=== PATIENT | female | born 1940 ===

== ENCOUNTER 2016-12-02 09:22 | Emergency (ER) | payer MEDICARE, MEDICAID ==
[2016-12-02 09:58] VITALS: O2SAT 98
--- NOTE | 2016-12-02 11:14 | C.PDOC ---
History Of Present Illness 76 year old female presents to the ED with complaints of itchiness to her scalp after dying her hair 2 weeks ago. Patient states she has had similar symptoms before which improved with Benadryl, however she has not taken anything this time. Denies difficulty breathing, fever, chills, or any other complaints. Time Seen by Provider: 12/02/16 11:08 Chief Complaint (Nursing): Abnormal Skin Integrity History Per: Patient History/Exam Limitations: no limitations Onset/Duration Of Symptoms: Days Current Symptoms Are (Timing): Still Present Quality Of Symptoms: Itching Severity: Mild Past Medical History Reviewed: Historical Data, Nursing Documentation, Vital Signs Vital Signs: Last Vital Signs Temp 97.9 F 12/02/16 11:31 Pulse 78 12/02/16 11:31 Resp 16 12/02/16 11:31 BP 156/74 H 12/02/16 11:31 Pulse Ox 98 12/02/16 11:31 - Medical History PMH: Diabetes, Diverticulitis, Gastritis, Gall Bladder Disease, Hiatal Hernia, Hypercholesterolemia Surgical History: Cholecystectomy - [facility] Procedures COLONOSCOPY (02/02/99) ESOPHAGOGASTRODUODENOSCOPY [EGD] W/CLOSED BIOPSY (08/15/98) Family History: States: Unknown Family Hx - Social History Hx Tobacco Use: No Hx Alcohol Use: No Hx Substance Use: No - Immunization History Hx Tetanus Toxoid Vaccination: Yes Hx Influenza Vaccination: Yes Hx Pneumococcal Vaccination: Yes Review Of Systems Except As Marked, All Systems Reviewed And Found Negative. Constitutional: Negative for: Fever, Chills ENT: Negative for: Mouth Swelling, Throat Swelling Cardiovascular: Negative for: Chest Pain Respiratory: Negative for: Shortness of Breath Gastrointestinal: Negative for: Vomiting Skin: Positive for: Other (+Itchiness to the scalp) Physical Exam - Physical Exam Appears: Non-toxic, No Acute Distress Skin: Warm, Dry, Other (+Mild erythema to the scalp and forehead by the hair line) Head: Atraumatic, Normacephalic Eye(s): bilateral: Normal Inspection Oral Mucosa: Moist Tongue: No Normal Appearing Lips: No Normal Appearing Throat: No Drooling Neck: Supple Chest: Symmetrical Cardiovascular: Rhythm Regular Respiratory: Normal Breath Sounds, No Accessory Muscle Use Extremity: Normal ROM Neurological/Psych: Oriented x3, Normal Speech, Normal Cognition ED Course And Treatment O2 Sat by Pulse Oximetry: 98 (Room air) Pulse Ox Interpretation: Normal Progress Note: Patient treated with Benadryl and Solu-Medrol. Medical Decision Making Medical Decision Making: mild pruritis of face and scalp educated to avoid irritants of scalp ie hair colorings. Disposition Doctor Will See Patient In The: Office Counseled Patient/Family Regarding: Studies Performed, Diagnosis - Disposition Referrals: Robbin Joy [Staff Provider] - Disposition: HOME/ ROUTINE Disposition Time: 11:14 Condition: GOOD Additional Instructions: devante las cosas para gambino rodrigo que pueden ser provocando gambino irritacion del piel y holli Ud Recebio' Solumedrol 125 mg Intramuscular en la [place] de Emergencias Sigue Benadryl 25-50 mg cada 6 horas cuate necessario Sigue con Dr. Joy cuate necessario. Prescriptions: DiphenhydrAMINE [Benadryl] 25 mg PO Q6H PRN #10 cap PRN Reason: rash/itch Instructions: Contact Dermatitis (ED) Print Language: HEBREW - Clinical Impression Clinical Impression: Contact dermatitis - Scribe Statement The provider has reviewed the documentation as recorded by the Scribe Mi Babcock. Provider Attestation: All medical record entries made by the Scribe were at my direction and personally dictated by me. I have reviewed the chart and agree that the record accurately reflects my personal performance of the history, physical exam, medical decision making, and the department course for this patient. I have also personally directed, reviewed, and agree with the discharge instructions and disposition.
[2016-12-02 11:32] VITALS: BP 156/74; PULSE 78; RESP 16; TEMP 97.9
== END 2016-12-02 11:37 | disposition home or self-care (01) ==
LOC: C.ER 09:22
DX: L25.9 Unspecified contact dermatitis, unspecified cause (principal)
CPT/HCPCS: 96372; 99284; J2930

== ENCOUNTER 2017-01-22 07:07 | Emergency (ER) | payer MEDICARE, MEDICAID ==
[2017-01-22 07:45] VITALS: BMI 30.1
[2017-01-22] MEDS ORDERED: Sodium Chloride 0.9% 1,000 ML IV ONE (07:45)
[2017-01-22] MEDS ORDERED: Sodium Chloride 0.9% 1,000 ML ONE (08:09)
[2017-01-22 08:19] LABS: BASO # 0.1 K/uL (0.0-0.2); BASO % 0.9 % (0.0-2.0); EOS # 0.2 K/uL (0.0-0.7); EOS % 2.2 % (0.0-4.0); HEMATOCRIT 38.2 % (34.0-47.0); LYMPH # 1.6 K/uL (1.0-4.3); LYMPH % 19.6 % (20.0-40.0); MEAN CELL VOLUME 88.4 fL (81.0-99.0); MEAN CORPUSCULAR HGB CONC 33.9 g/dL (33.0-37.0); MONO # 0.7 K/uL (0.0-0.8); MONO % 8.3 % (0.0-10.0); NRBC % 0.1 % (0.0-2.0); RED CELL DISTRIBUTION WIDTH 13.7 % (11.5-14.5); WHITE BLOOD COUNT 8.1 K/uL (4.8-10.8)
--- NOTE | 2017-01-22 08:22 | C.PDOC ---
History Of Present Illness 76 y/o female presents to the ED with complains of nausea, vomiting x3 days. Pt reports using proton pump inhibitor. Denies any pmhx. No abdominal pain, fever, chills, chest pain or any other complaints. Time Seen by Provider: 01/22/17 07:30 Chief Complaint (Nursing): Abdominal Pain History Per: Patient History/Exam Limitations: no limitations Onset/Duration Of Symptoms: Hrs Current Symptoms Are (Timing): Still Present Severity: Moderate Radiation Of Pain To:: None Associated Symptoms: Nausea, Vomiting. denies: Fever, Chills, Chest Pain Exacerbating Factors: None Alleviating Factors: None Recent travel outside of the [place]: No Past Medical History Reviewed: Historical Data, Nursing Documentation, Vital Signs Vital Signs: Last Vital Signs Temp 98.3 F 01/22/17 11:14 Pulse 61 01/22/17 11:14 Resp 17 01/22/17 11:14 BP 156/80 H 01/22/17 11:14 Pulse Ox 97 01/22/17 11:14 - Medical History PMH: Diabetes, Diverticulitis, Gastritis, Gall Bladder Disease, Hiatal Hernia, Hypercholesterolemia Surgical History: Cholecystectomy - [facility] Procedures COLONOSCOPY (02/02/99) ESOPHAGOGASTRODUODENOSCOPY [EGD] W/CLOSED BIOPSY (08/15/98) Family History: States: Unknown Family Hx - Social History Hx Tobacco Use: No Hx Alcohol Use: No Hx Substance Use: No - Immunization History Hx Tetanus Toxoid Vaccination: (unk) Hx Influenza Vaccination: Yes Hx Pneumococcal Vaccination: Yes Review Of Systems Except As Marked, All Systems Reviewed And Found Negative. Constitutional: Negative for: Fever, Chills Cardiovascular: Negative for: Chest Pain Gastrointestinal: Positive for: Nausea, Vomiting. Negative for: Abdominal Pain Physical Exam - Physical Exam Appears: Non-toxic, No Acute Distress Skin: Warm, Dry, No Rash Head: Atraumatic, Normacephalic Oral Mucosa: Moist Neck: Normal, Normal ROM, Supple Chest: Symmetrical Cardiovascular: Rhythm Regular, No Murmur Respiratory: Normal Breath Sounds, No Rales, No Rhonchi, No Wheezing Gastrointestinal/Abdominal: Soft, Tenderness (epigastric), No Guarding, No Rebound, Other (no active vomiting) Back: Normal Inspection Extremity: Normal ROM Extremity: Bilateral: Atraumatic Neurological/Psych: Oriented x3, Normal Speech Gait: Steady ED Course And Treatment - Laboratory Results Result Diagrams: 01/22/17 08:12 01/22/17 08:12 Lab Interpretation: Normal ECG: Interpreted By Me ECG Rhythm: Sinus Rhythm ECG Interpretation: Normal Rate From EC O2 Sat by Pulse Oximetry: 98 (room air) Pulse Ox Interpretation: Normal - CT Scan/US No standard instances Other Rad Studies (CT/US): Interpreted By Me, Read By Radiologist CT/US Interpretation: FINDINGS: LOWER THORAX: No infiltrate. Nodular calcification anterior right lower lobe, possibly calcified granuloma. Linear scar/atelectasis left lower lobe. LIVER: Unremarkable. No gross lesion or ductal dilatation. GALLBLADDER AND BILE DUCTS: Status post cholecystectomy. Dilatation of common bile duct up to 11 mm consistent with patient age and prior cholecystectomy. PANCREAS: Mild atrophy. No mass or pancreatic ductal dilatation. SPLEEN: Unremarkable. ADRENALS: Unremarkable. No mass. KIDNEYS AND URETERS: Mild right hydronephrosis unchanged from prior examination. Extrarenal right renal pelvis. Short interval transition to normal caliber ureter likely reflects developmental right UPJ obstruction. No change from prior. No left hydronephrosis. No renal mass or calculus. No ureteral calculus. VASCULATURE: Unremarkable. No aortic aneurysm. BOWEL: Sigmoid diverticulosis. No evidence of diverticulitis. No bowel obstruction. APPENDIX: Not identified. No secondary findings to suggest acute appendicitis. PERITONEUM: Unremarkable. No free fluid. No free air. LYMPH NODES: Unremarkable. No enlarged lymph nodes. BLADDER: Unremarkable. REPRODUCTIVE: Lattice post hysterectomy. BONES: No fracture. Grade 1 anterolisthesis L4-5 without spondylolysis. OTHER FINDINGS: None. IMPRESSION: No acute abnormality. 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 Sigmoid diverticulosis without evidence of diverticulitis. Status post cholecystectomy. Progress Note: Plan: labs, fluids, zofran, pepcid. Treated with maalox PO. On re-evaluation abdomen soft mild epigastric tenderness Reassessment Condition: Improved Disposition Counseled Patient/Family Regarding: Studies Performed, Diagnosis, Need For Followup, Rx Given - Disposition Referrals: [facility] [Outside] [facility] [Outside] Disposition: HOME/ ROUTINE Disposition Time: 11:15 Condition: STABLE Additional Instructions: Follow up with PMD for further evaluation Prescriptions: Famotidine [Pepcid AC] 10 mg PO BID #20 tab Instructions: Gastritis (ED), Diet for Ulcers and Gastritis (ED), Acute Nausea and Vomiting (ED) Print Language: SERBIAN - POA Present On Arrival: None - Clinical Impression Clinical Impression: Abdominal pain, Nausea, Vomiting, Gastritis - 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 - Scribe Statement The provider has reviewed the documentation as recorded by the Lionel Lino All medical record entries made by the Lionel were at my direction and personally dictated by me. I have reviewed the chart and agree that the record accurately reflects my personal performance of the history, physical exam, medical decision making, and the department course for this patient. I have also personally directed, reviewed, and agree with the discharge instructions and disposition.
[2017-01-22 08:27] LABS: CHLORIDE 94 mmol/L (98-107)
[2017-01-22 08:28] LABS: POTASSIUM 4.5 mmol/L (3.6-5.2); SODIUM 135 mmol/L (132-148)
[2017-01-22 08:30] LABS: ALB/GLOB RATIO 1.5 (1.0-2.1); ALKALINE PHOSPHATASE 52 U/L (38-126); ALT/SGPT 19 U/L (9-52); AST/SGOT 25 U/L (14-36); BILIRUBIN,TOTAL 0.7 mg/dL (0.2-1.3); BLOOD UREA NITROGEN 16 mg/dL (7-17); CARBON DIOXIDE 26 mmol/L (22-30); GFR AFRICAN-AMERICAN > 60; GLUCOSE,RANDOM 158 mg/dL (65-105); TOTAL PROTEIN 7.9 g/dL (6.3-8.3)
[2017-01-22 08:31] LABS: CALCIUM 9.3 mg/dl (8.6-10.4)
[2017-01-22 08:32] LABS: RBC URINE < 1 /hpf (0-3); URINE BILIRUBIN NEGATIVE (NEGATIVE); URINE BLOOD NEGATIVE (NEGATIVE); URINE COLOR Yellow (YELLOW); URINE GLUCOSE (UA) 1+ mg/dL (Normal); URINE KETONE NEGATIVE (NEGATIVE); URINE LEUKOCYTE ESTERASE NEG Leu/uL (Negative); URINE PROTEIN 1+ mg/dL (NEGATIVE); URINE UROBILINOGEN NORMAL mg/dL (0.2-1.0)
--- NOTE | 2017-01-22 10:28 | CT ---
PROCEDURE: CT Abdomen and Pelvis without intravenous contrast HISTORY: Pain COMPARISON: 02/22/2016 TECHNIQUE: Without contrast.. Contrast Dose: 0 Radiation dose: Total exam DLP = 330.18 mGy-cm. This CT exam was performed using one or more of the following dose reduction techniques: Automated exposure control, adjustment of the mA and/or kV according to patient size, and/or use of iterative reconstruction technique. FINDINGS: LOWER THORAX: No infiltrate. Nodular calcification anterior right lower lobe, possibly calcified granuloma. Linear scar/atelectasis left lower lobe. LIVER: Unremarkable. No gross lesion or ductal dilatation. GALLBLADDER AND BILE DUCTS: Status post cholecystectomy. Dilatation of common bile duct up to 11 mm consistent with patient age and prior cholecystectomy. PANCREAS: Mild atrophy. No mass or pancreatic ductal dilatation. SPLEEN: Unremarkable. ADRENALS: Unremarkable. No mass. KIDNEYS AND URETERS: Mild right hydronephrosis unchanged from prior examination. Extrarenal right renal pelvis. Short interval transition to normal caliber ureter likely reflects developmental right UPJ obstruction. No change from prior. No left hydronephrosis. No renal mass or calculus. No ureteral calculus. VASCULATURE: Unremarkable. No aortic aneurysm. BOWEL: Sigmoid diverticulosis. No evidence of diverticulitis. No bowel obstruction. APPENDIX: Not identified. No secondary findings to suggest acute appendicitis. PERITONEUM: Unremarkable. No free fluid. No free air. LYMPH NODES: Unremarkable. No enlarged lymph nodes. BLADDER: Unremarkable. REPRODUCTIVE: Lattice post hysterectomy BONES: No fracture. Grade 1 anterolisthesis L4-5 without spondylolysis. OTHER FINDINGS: None. IMPRESSION: No acute abnormality. 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 Sigmoid diverticulosis without evidence of diverticulitis. Status post cholecystectomy. So we are looking at the 1st at the all or
[2017-01-22] MEDS ORDERED: Alum-Mag Hydrox-Simethicone Susp (30 mL) PO STA (10:46)
[2017-01-22] MEDS ORDERED: Alum-Mag Hydrox-Simethicone Susp (30 mL) ONE (10:50)
[2017-01-22 11:15] VITALS: BP 156/80; PULSE 61; RESP 17; TEMP 98.3
[2017-01-22 15:41] VITALS: O2SAT 98
--- NOTE | 2017-01-30 01:41 | CARD ---
APPROVED REPORT EKG Measurement Heart [id number] VT [id number] <Conclusion> Normal sinus rhythm Normal ECG
== END 2017-01-22 11:27 | disposition home or self-care (01) ==
LOC: C.ER 07:07
DX: K29.70 Gastritis, unspecified, without bleeding (principal)
CPT/HCPCS: 74176; 80053; 81001; 82553; 82948; 83690; 84484; 85025; 93005; 96361; 96374; 96375; 99285; J2405; J7040

== ENCOUNTER 2018-01-14 08:34 | Emergency (ER) | payer MEDICARE, MEDICAID ==
[2018-01-14 08:34] VITALS: BMI 30.1
[2018-01-14 09:02] VITALS: RESP 18
--- NOTE | 2018-01-14 09:31 | C.PDOC ---
History Of Present Illness 77 y/o female presents to the ER complaining of right leg pain with redness and swelling which has been present for the past 3 days. Patient states that the pain is worse with ambulation and movement. Patient denies having CP, SOB, fever, and hx of DVT/ PE. Time Seen by Provider: 01/14/18 08:50 Chief Complaint (Nursing): Lower Extremity Problem/Injury History Per: Patient History/Exam Limitations: no limitations Onset/Duration Of Symptoms: Days Current Symptoms Are (Timing): Still Present Severity: Moderate Past Medical History Reviewed: Historical Data, Nursing Documentation, Vital Signs Vital Signs: Last Vital Signs Temp 98.7 F 01/14/18 08:58 Pulse 70 01/14/18 08:58 Resp 18 01/14/18 08:58 BP 170/72 H 01/14/18 08:58 Pulse Ox 98 01/14/18 10:04 - Medical History PMH: Diabetes, Diverticulitis, Gastritis, Gall Bladder Disease, Hiatal Hernia, Hypercholesterolemia Denies: Crohn's Disease, HIV, Pancreatitis, Chronic Kidney Disease Surgical History: Cholecystectomy - [facility] Procedures COLONOSCOPY (02/02/99) ESOPHAGOGASTRODUODENOSCOPY [EGD] W/CLOSED BIOPSY (08/15/98) Family History: States: No Known Family Hx - Social History Hx Tobacco Use: No Hx Alcohol Use: No Hx Substance Use: No - Immunization History Hx Tetanus Toxoid Vaccination: (unk) Hx Influenza Vaccination: Yes Hx Pneumococcal Vaccination: Yes Review Of Systems Except As Marked, All Systems Reviewed And Found Negative. Constitutional: Negative for: Fever, Chills Cardiovascular: Negative for: Chest Pain Respiratory: Negative for: Shortness of Breath Musculoskeletal: Positive for: Leg Pain (right leg pain) Physical Exam - Physical Exam Appears: Non-toxic, No Acute Distress Skin: Normal Color, Warm, Dry Head: Atraumatic, Normacephalic Eye(s): bilateral: Normal Inspection Nose: Normal Oral Mucosa: Moist Neck: Supple Chest: Symmetrical Cardiovascular: Rhythm Regular Respiratory: Normal Breath Sounds, No Rales, No Rhonchi, No Wheezing Extremity: Normal ROM, Tenderness (tenderness to palpation in right inner thigh , mild tenderness to palpation at right calf,), Capillary Refill (< 2 seconds), No Swelling, Other (large varicose vein to right inner thigh with some overlying erythema) Pulses: Right Dorsalis Pedis: Normal Neurological/Psych: Oriented x3, Normal Speech ED Course And Treatment O2 Sat by Pulse Oximetry: 98 (RA) Pulse Ox Interpretation: Normal Progress Note: Duplex Scan- Lower Extremity Artery ordered. Patient treated with Tylenol PO. Disposition Counseled Patient/Family Regarding: Studies Performed, Diagnosis, Need For Followup, Rx Given - Disposition Referrals: Robbin Joy [Staff Provider] - Disposition: HOME/ ROUTINE Disposition Time: 10:10 Condition: STABLE Additional Instructions: FOLLOW UP WITH YOUR DOCTOR IN 1-2 DAYS USE NSAID PAIN MEDICATION AND TAKE WITH FOOD APPLY WARM COMPRESSES TO LEG RETURN TO EMERGENCY ROOM IF SYMPTOMS WORSEN SEGUIMIENTO CON LITTLEJOHN MDICO EN 1-2 SYED UTILIZAR MEDICAMENTO PARA DOLOR DE AINEES Y ADAMS CON ALIMENTOS APLIQUE COMPRESAS CALIENTES A LA PIERNA REGRESE AL RAJAN DE EMERGENCIA SI LOS SNTOMAS EMPEORAN Prescriptions: Naproxen 375 mg PO BID PRN #20 tablet PRN Reason: pain Instructions: Phlebitis (DC) Forms: [employer] (Estonian) Print Language: SLOVENIAN - Clinical Impression Clinical Impression: Phlebitis of right leg - Scribe Statement The provider has reviewed the documentation as recorded by the Scribe Eun Rocha Provider Attestation: All medical record entries made by the Scribe were at my direction and personally dictated by me. I have reviewed the chart and agree that the record accurately reflects my personal performance of the history, physical exam, medical decision making, and the department course for this patient. I have also personally directed, reviewed, and agree with the discharge instructions and disposition.
[2018-01-14 10:26] VITALS: BP 181/79; PULSE 67; TEMP 99.3; O2SAT 97
--- NOTE | 2018-01-15 09:37 | VASCLAB ---
PROCEDURE: Right Lower Extremity Venous Duplex Exam. HISTORY: Right leg pain, swelling, r/o DVT PRIORS: None. TECHNIQUE: Right common femoral, femoral, popliteal and posterior tibial, peroneal and great saphenous veins were evaluated. Flow was assessed with color Doppler, compressibility, assessment of phasic flow and augmentation response. Report prepared by STEPHANIE Rees FINDINGS: RIGHT: 1. Common Femoral Vein: 1.1. Compressibility - Fully compressible: Thrombus - None: Flow - Phasic: Augmentation -Normal: Reflux - None. 2. Femoral Vein: 2.1. Compressibility - Fully compressible: Thrombus - None: Flow - Phasic: Augmentation -Normal: Reflux - None. 3. Popliteal Vein: 3.1. Compressibility - Fully compressible: Thrombus - None: Flow - Phasic: Augmentation -Normal: Reflux - None. 4. Posterior Tibial Vein: 4.1. Compressibility - Fully compressible: Thrombus - None: Flow - Phasic: Augmentation -Normal: Reflux - None. 5. Peroneal Vein: 5.1. Compressibility - Fully compressible: Thrombus - None: Flow - Phasic: Augmentation -Normal: Reflux - None. 6. Great Saphenous Vein: 6.1. Compressibility - Partial: Thrombus -Chronic: Flow - Reduced : Augmentation - Normal: Reflux - None. OTHER FINDINGS: Multiple varicose veins noted in the inner lateral thigh areas. IMPRESSION: 1. Superficial phlebitis of the right great saphenous vein, from knee to mid thigh. 2. No evidence of deep vein thrombosis in the right lower extremity. Findings were reported to Dr. Herrera.
== END 2018-01-14 10:27 | disposition home or self-care (01) ==
LOC: C.ER 08:34
DX: I80.3 Phlebitis and thrombophlebitis of lower extremities, unspecified (principal); E11.9 Type 2 diabetes mellitus without complications; E78.00 Pure hypercholesterolemia, unspecified

== ENCOUNTER 2018-03-24 06:38 | Day surgery (SDC) | payer MEDICARE, MEDICAID ==
--- NOTE | 2018-03-24 07:51 | CP.SDSHP ---
Same Day Surgery H & P - History Proposed Procedure: egd Pre-Op Diagnosis: epigastric pain. heartburn. persistent nausea - Previous Medical/Surgical History Cardiac: Other (hyperlipidemia) Endocrine/Metabolic: Diabetes Misc: Other (Gastritis, Gerd, colon polyps, hiatal hernia, ) Previous Surgical History: cholecystectomy - Allergies Allergies: Allergies Penicillins Allergy (Verified 01/14/18 08:40) - Physical Exam Vital Signs: Vital Signs 03/24/18 07:03 Temperature 97.1 F L Pulse Rate 66 Respiratory 19 Rate Blood Pressure 177/61 H O2 Sat by Pulse 98 Oximetry Mental Status: Alert & Oriented x3 Neuro: WNL Heart: WNL Lungs: WNL GI: WNL - Impression Impression: epigastric pain. heartburn. persistent nausea Pt. Evaluated Today:Candidate for Anesthesia & Procedure: Yes - Date & Time Date: 03/24/18 Time: 07:51 Short Stay Discharge - Short Stay Discharge Admitting Diagnosis/Reason for Visit: NAUSEA / HEARTBURN / EPIGASTRIC PAIN Disposition: HOME/ ROUTINE
[2018-03-24] MEDS ORDERED: Pantoprazole 40 mg EC Tab PO STA ×2 (07:52→09:01)
[2018-03-24] MEDS ORDERED: Propofol 10 mg/ml Inj (20 ML) ONE (07:52)
[2018-03-24] MEDS ORDERED: Lactated Ringer's 500 ML IV ONE (07:55)
[2018-03-24 08:08] VITALS: O2SAT 100
[2018-03-24 08:27] VITALS: TEMP 97.8
[2018-03-24 08:56] VITALS: RESP 14
[2018-03-24 08:58] VITALS: BP 166/59; PULSE 59
== END 2018-03-24 09:27 | disposition home or self-care (01) ==
LOC: C.ENDO 06:38
PROVIDERS: ATTEND Internal Medicine Gastroenterology
DX: K29.50 Unspecified chronic gastritis without bleeding (principal); K21.0 Gastro-esophageal reflux disease with esophagitis; E78.5 Hyperlipidemia, unspecified; K44.9 Diaphragmatic hernia without obstruction or gangrene
CPT/HCPCS: 43239; 82948; 88305; 88312; 88313; 88342; J2001; J2704; J7120

== ENCOUNTER 2018-09-24 09:57 | Outpatient (CLI) | payer MEDICARE, MEDICAID | END 2018-09-24 09:58 | disposition home or self-care (01) | LOC: C.LAB 09:57 ==

== ENCOUNTER 2018-09-29 10:00 | Outpatient (CLI) | payer MEDICARE, MEDICAID | END 2018-09-29 10:01 | disposition home or self-care (01) | LOC: C.RADIC 10:00 | DX: Z01.818 Encounter for other preprocedural examination (principal) ==